=== PATIENT | male | born 1975 | race Two or more races ===

== ENCOUNTER 2017-02-13 20:34 | Emergency (ER) | payer MEDICAID, OTHER ==
[~2017-02-13] VITALS: Ht 165.1 cm; Wt 90.0 kg
[2017-02-13 21:44] LABS: HEMATOCRIT 42.7 % (39.2-51.8); HEMOGLOBIN 14.6 g/dL (13.7-18.0)
[2017-02-13 21:56] LABS: BLOOD UREA NITROGEN 18 mg/dL (7-18)
[2017-02-13 22:02] LABS: IS PT STATUS REG ER OR PRE ER? YES
[2017-02-13 22:48] VITALS: BP 116/78
== END 2017-02-13 22:51 | disposition home or self-care (01) ==
LOC: ED 22:45
DX: R00.2 Palpitations (principal)
CPT/HCPCS: 36415; 71010; 80048; 82040; 83735; 84443; 84484; 85025; 93005; 99285